=== PATIENT | female | born 1980 | race Caucasian/White ===

== ENCOUNTER → 2025-04-10 | Day surgery (SDC) | payer BC ==
[~2025-04-10] MED LIST: Gadobenate 529 MG/ML (10ML SDV) ONE; Gadobenate Dimeglumine 2 ML, Sodium Chloride 0.9% 250 ML 10 ML, Iopamidol 8 ML, Lidocai... FS SCH; Iopamidol 300 61% 30 ML VIAL ONE
== END ==
LOC: CSHRAD 08:18
PROVIDERS: ATTEND Student in an Organized Health Care Education/Training Program
PROC: BQ01YZZ Plain Radiography of Left Hip using Other Contrast (ICD-10-PCS; principal; 2025-04-10)
DX: S73.192A Other sprain of left hip, initial encounter (principal); X58.XXXA Exposure to other specified factors, initial encounter
CPT/HCPCS: 27093; 77002; A9577; J0166; J7050; Q9967